=== PATIENT | female | born 1965 | race Caucasian/White ===

== ENCOUNTER 2017-02-21 21:32 | Emergency (ER) | payer BC, OTHER ==
[~2017-02-21] VITALS: Ht 157.5 cm; Wt 56.6 kg
[~2017-02-21 21:32] MED LIST: OMEP20CA5 PO; PAXI20TA26 PO; PRIN20TA2 PO; PROV200T11 PO; Z.0.BCPILL PO
[2017-02-21 21:37] VITALS: BP 155/74; PULSE 92; RESP 20; TEMP 97.3; O2SAT 97
[2017-02-21] MEDS ORDERED: PRED10 PO (21:50)
[2017-02-21] MEDS ORDERED: OMEP20TA93 PO (21:50)
[2017-02-21] MEDS ORDERED: CITA20TA4 PO (21:50)
--- NOTE | 2017-02-21 21:50 | PD ---
HPI Chief Complaint: Cold / Flu Symptoms Time Seen by Provider: 21:49 Travel History International Travel<30 days: No Contact w/Intl Traveler<30days: No Traveled to known affect area: No History of Present Illness HPI The patient is a 51-year-old female that has had a cough and congestion for 2 weeks. She apparently was already seen and given a Z-Osei without relief. She complains of a slight, gradual onset headache. She denies any fever. She smokes one pack a day. She comes in because of her persistent cough. PFSH Past Medical History Cancer: No Diabetes: No Glaucoma: No Hepatitis: No Hypertension: Yes Thyroid Disease: No ?: Unknown Past Surgical History Abdominal Surgery: Yes (GALLBLADDER) Cardiac Surgery: No Ear Surgery: No Endocrine Surgery: No Eye Surgery: Yes (LASER) Genitourinary Surgery: No Gynecologic Surgery: Yes (CAUTERIZATION CERVIX) Oral Surgery: No Pacemaker: No Thoracic Surgery: No Social History Alcohol Use: No Tobacco Use: No Allergies-Medications (Allergen,Severity, Reaction): Coded Allergies: No Known Allergies (Unverified Adverse Reaction, Unknown, 02/21/17) Reported Meds & Prescriptions Reported Meds & Active Scripts Active Guaifenesin DAC Liq (Nkwmfrwcrkfrcin-Bauhjew-Ebzwhlihwcy Liq) 30-10-100 Mg/5 Ml Soln 10 Ml PO Q4H PRN Reported Omeprazole 20 Mg Tab 20 Mg PO DAILY Citalopram (Citalopram Hydrobromide) 20 Mg Tab 20 Mg PO DAILY Prednisone 10 Mg Tab 10 Mg PO DIRECTED Review of Systems Except as stated in HPI: all other systems reviewed are Neg Physical Exam Narrative GENERAL: The patient is alert, oriented 3 in no respiratory distress. Her vital signs show blood pressure 155/74 with heart rate of 92 but otherwise normal. SKIN: Focused skin assessment warm/dry. HEAD: Atraumatic. Normocephalic. EYES: Pupils equal and round. No scleral icterus. No injection or drainage. ENT: No nasal bleeding or discharge. Mucous membranes pink and moist. NECK: Trachea midline. No JVD. CARDIOVASCULAR: Regular rate and rhythm. No murmur appreciated. RESPIRATORY: No accessory muscle use. Clear to auscultation. Breath sounds equal bilaterally. GASTROINTESTINAL: Abdomen soft, non-tender, nondistended. Hepatic and splenic margins not palpable. MUSCULOSKELETAL: No obvious deformities. No clubbing. No cyanosis. No edema. NEUROLOGICAL: Awake and alert. No obvious cranial nerve deficits. Motor grossly within normal limits. Normal speech. PSYCHIATRIC: Appropriate mood and affect; insight and judgment normal. Data Data Last Documented VS Vital Signs Date Time Temp Pulse Resp B/P (MAP) Pulse Ox O2 Delivery O2 Flow Rate FiO2 02/21/17 21:50 97 Room Air 02/21/17 21:37 97.3 92 20 155/74 (101) Orders Orders Chest, Pa & Lat (02/21/17 21:50) Guaifen-Cod 200-20 Mg/10ml Liq (Robituss (02/21/17 22:00) MDM Medical Decision Making Medical Screen Exam Complete: Yes Emergency Medical Condition: Yes Medical Record Reviewed: Yes Interpretation(s) The chest x-ray shows no acute cardiopulmonary disease. Differential Diagnosis Pneumonia, bronchitis, viral upper respiratory infection, asthma Narrative Course The patient appears to have a viral upper respiratory infection. The lungs are clear and the chest x-ray is normal. Diagnosis Primary Impression: Viral URI with cough Additional Instructions: The cough syrup contains codeine and may make you feel dizzy and sleepy. Be careful about driving on this medication and do not drink alcohol with it. It is 10 cc every 4 hours as needed. Follow-up next week with your primary care physician. Med/Other Pt SpecificInfo: Prescription(s) given Scripts Lrxfraierpvttju-Iumvcsi-Wrvftzzaini Liq (Guaifenesin DAC Liq) 30-10-100 Mg/5 Ml Soln 10 ML PO Q4H Y for COUGH AND/OR COLD SYMPTOMS, #1 BOTTLE 0 Refills Prov: Jeremie Smith MD 02/21/17 Disposition: 01 DISCHARGE HOME Condition: Stable Jeremie Smith MD Feb 21, 2017 21:50
[2017-02-21] MEDS ORDERED: guaiFENesin/CODEINE SYRUP 200 MG/20 MG/10 ML CUP PO ONE (22:00)
--- NOTE | 2017-02-21 22:12 | RADRPT ---
EXAM DATE/TIME: 02/21/2017 21:53 [facility] COMPARISON: No previous studies available for comparison. INDICATIONS : Cough, congestion. MEDICAL HISTORY : None. SURGICAL HISTORY : None. ENCOUNTER: Initial ACUITY: 2 weeks PAIN SCORE: 0/10 LOCATION: Bilateral chest FINDINGS: The lungs are clear without infiltrate, nodule, or mass. There is no appreciable pleural effusion fo r technique. Heart and mediastinum are unremarkable. CONCLUSION: No acute cardiopulmonary disease. Justo Sewell MD on February 21, 2017 at 22:10 Board Certified Radiologist. This report was verified electronically.
[2017-02-21] MEDS ORDERED: GUAISOL PO (22:30)
== END 2017-02-21 22:38 | disposition home or self-care (01) ==
LOC: PHEFT 21:32
DX: J06.9 Acute upper respiratory infection, unspecified (principal); I10 Essential (primary) hypertension; F17.210 Nicotine dependence, cigarettes, uncomplicated
CPT/HCPCS: 71020; 99283